=== PATIENT | female | born 1995 | race Two or more races ===

== ENCOUNTER 2016-11-21 16:32 | Emergency (ER) | payer SELFPAY ==
[~2016-11-21] VITALS: Ht 160 cm; Wt 61.2 kg
[2016-11-21 17:36] LABS: BASO % 1 % (0-3); EOS % 1 % (0-3); HEMATOCRIT 36.1 % (36.0-47.0); LYMPH # 2.8 x10^3/uL (1.0-4.8); LYMPH % 33 % (24-48); MEAN CORPUSCULAR HEMOGLOBIN 29 pg (25-35); MEAN CORPUSCULAR HGB CONC 33 g/dL (31-37); MEAN CORPUSCULAR VOLUME 88 fL (79-100); MONO % 7 % (0-9); NEUT % 59 % (31-73); PLATELET COUNT 263 x10^3/uL (140-400); RED BLOOD COUNT 4.12 x10^6/uL (3.50-5.40); RED CELL DISTRIBUTION WIDTH 13.8 % (11.5-14.5); WHITE BLOOD COUNT 8.3 x10^3/uL (4.0-11.0)
[2016-11-21 17:37] LABS: BILIRUBIN,URINE NEGATIVE (NEG); GLUCOSE,URINE NEGATIVE (NEG); NITRITE,URINE NEGATIVE (NEG); PROTEIN,URINE NEGATIVE (NEG-TRACE)
[2016-11-21 17:46] LABS: CALCIUM 8.7 mg/dL (8.5-10.1); CREATININE 0.6 mg/dL (0.6-1.0); GFR 126.2; POTASSIUM 3.8 mmol/L (3.5-5.1)
[2016-11-21 17:49] LABS: BACTERIA,URINE FEW /HPF (0-FEW); RBC,URINE 0 /HPF (0-2); SQUAMOUS EPITHELIAL CELL,UR MANY /LPF
[2016-11-21 17:53] LABS: ALBUMIN 3.7 g/dL (3.4-5.0); DIRECT BILIRUBIN 0.1 mg/dL (0.0-0.2); TOTAL BILIRUBIN 0.4 mg/dL (0.2-1.0); TOTAL PROTEIN 7.8 g/dL (6.4-8.2)
--- NOTE | 2016-11-21 18:12 | RAD ---
PROCEDURE Obstetrics sonogram. HISTORY Pain. TECHNIQUE Trans abdominal sonographic imaging of the pelvis was performed. COMPARISON None. FINDINGS The uterus measures 7.9 x 6.1 x 4.7 cm. The uterus is anteverted. The endometrium measures 8.7 mm in thickness. The right ovary measures 3.6 x 1.9 x 1.9 cm. The left ovary measures 3.3 x 2.2 x 2.5 cm. There is normal blood flow within both ovaries. There is no pelvic free fluid. IMPRESSION 1. Relatively unremarkable pelvic sonogram. No intrauterine gestation is identified. Correlate with a beta HCG level to exclude a possible ectopic gestation. 2. Note is made that the patient refused transvaginal sonographic imaging for better characterization. Electronically signed by: Sveta Campbell (Nov 21, 2016 18:10:50)
[2016-11-21] MEDS ORDERED: PREN1TAB58 PO (18:27)
--- NOTE | 2016-11-21 18:27 | PHYS DOC ---
Past Medical History Past Medical History: No Pertinent History Past Surgical History: No Surgical History Alcohol Use: None Drug Use: None Adult General Chief Complaint Chief Complaint: ABDOMINAL PAIN HPI HPI 21-year-old female presenting with suprapubic abdominal pain for 3 weeks. It is sharp pain that comes and goes. She denies nausea vomiting. She denies vaginal bleeding or changes in vaginal discharge. She denies recent exposure to STDs. The pain is nonradiating and without alleviating factors. Review of systems is negative for chest pain shortness of breath fevers or chills. All other review of systems is negative unless otherwise noted in history of present illness. Review of Systems Review of Systems SEE ABOVE. Allergies Allergies Allergies Coded Allergies Type Severity Reaction Last Updated Verified No Known Drug Allergies 11/21/16 No Physical Exam Physical Exam Constitutional: Well developed, well nourished, no acute distress, non-toxic appearance. HENT: Normocephalic, atraumatic, bilateral external ears normal, oropharynx moist, no oral exudates, nose normal. Eyes: PERRLA, EOMI, conjunctiva normal, no discharge. [] Neck: Normal range of motion, no tenderness, supple, no stridor. Cardiovascular:Heart rate regular rhythm, no murmur [] Lungs & Thorax: Bilateral breath sounds clear to auscultation [] Abdomen: Soft nontender abdomen without rebound tenderness or guarding present. Negative McBurneys point. Negative Merrill sign. No ecchymosis present. Skin: Warm, dry, no erythema, no rash. [] Back: No tenderness, no CVA tenderness. Extremities: No tenderness, no cyanosis, no clubbing, ROM intact, no edema. [] Neurologic: Alert and oriented X 3, normal motor function, normal sensory function, no focal deficits noted. Psychologic: Affect normal, judgement normal, mood normal. [] Current Patient Data Vital Signs Vital Signs Date Time Temp Pulse Resp B/P Pulse Ox O2 Delivery O2 Flow Rate FiO2 11/21/16 18:33 72 16 95/55 98 Room Air 11/21/16 16:51 99.0 99.0 Lab Values Laboratory Tests Test 11/21/16 16:11 11/21/16 17:00 11/21/16 17:29 POC Urine HCG, Qualitative Hcg positive (Negative) Urine Collection Type Unknown Urine Color Yellow Urine Clarity Clear Urine pH 6.0 Urine Specific [place] 1.025 Urine Protein Negativemg/dL (NEG-TRACE) Urine Glucose (UA) Negativemg/dL (NEG) Urine Ketones (Stick) Negativemg/dL (NEG) Urine Blood Negative (NEG) Urine Nitrite Negative (NEG) Urine Bilirubin Negative (NEG) Urine Urobilinogen Dipstick 1.0mg/dL (0.2 mg/dL) Urine Leukocyte Esterase Small (NEG) Urine RBC 0/HPF (0-2) Urine WBC 1-4/HPF (0-4) Urine Squamous Epithelial Cells Many/LPF Urine Bacteria Few/HPF (0-FEW) Urine Mucus Marked/LPF White Blood Count 8.3x10^3/uL (4.0-11.0) Red Blood Count 4.12x10^6/uL (3.50-5.40) Hemoglobin 12.0g/dL (12.0-15.5) Hematocrit 36.1% (36.0-47.0) Mean Corpuscular Volume 88fL (79-100) Mean Corpuscular Hemoglobin 29pg (25-35) Mean Corpuscular Hemoglobin Concent 33g/dL (31-37) Red Cell Distribution Width 13.8% (11.5-14.5) Platelet Count 263x10^3/uL (140-400) Neutrophils (%) (Auto) 59% (31-73) Lymphocytes (%) (Auto) 33% (24-48) Monocytes (%) (Auto) 7% (0-9) Eosinophils (%) (Auto) 1% (0-3) Basophils (%) (Auto) 1% (0-3) Neutrophils # (Auto) 4.9x10^3uL (1.8-7.7) Lymphocytes # (Auto) 2.8x10^3/uL (1.0-4.8) Monocytes # (Auto) 0.6x10^3/uL (0.0-1.1) Eosinophils # (Auto) 0.1x10^3/uL (0.0-0.7) Basophils # (Auto) 0.0x10^3/uL (0.0-0.2) Maternal Serum HCG Beta Subunit 369mIU/mL (0-6) H Sodium Level 139mmol/L (136-145) Potassium Level 3.8mmol/L (3.5-5.1) Chloride Level 104mmol/L (98-107) Carbon Dioxide Level 23mmol/L (21-32) Anion Gap 12 (6-14) Blood Urea Nitrogen 13mg/dL (7-20) Creatinine 0.6mg/dL (0.6-1.0) Estimated GFR (Cockcroft-Gault) 126.2 Glucose Level 93mg/dL (70-99) Calcium Level 8.7mg/dL (8.5-10.1) Total Bilirubin 0.4mg/dL (0.2-1.0) Direct Bilirubin 0.1mg/dL (0.0-0.2) Aspartate Amino Transferase (AST) 17U/L (15-37) Alanine Aminotransferase (ALT) 32U/L (14-59) Alkaline Phosphatase 104U/L (46-116) Total Protein 7.8g/dL (6.4-8.2) Albumin 3.7g/dL (3.4-5.0) Lipase 117U/L (73-393) Laboratory Tests 11/21/16 17:29 Laboratory Tests 11/21/16 17:29 EKG EKG [] Radiology/Procedures Radiology/Procedures [] Course & Med Decision Making Course & Med Decision Making Pertinent Labs and Imaging studies reviewed. (See chart for details) [] 21-year-old female presenting to the emergency department with suprapubic abdominal pain. Vital signs afebrile with a normal heart rate. Pertinent physical exam findings showed a nontender appendix nontender abdomen. Urine test positive. The patient was informed. Ultrasound unable to identify intrauterine however the patient's serum hCG is below the discriminatory zone. She is not having vaginal bleeding. Otherwise her blood work is unremarkable including Rh+ status. I recommended the patient follow up with Dr. Betancourt our mac developer in 2 days for repeat beta hCG testing and further evaluation and care. Dragon Disclaimer Dragon Disclaimer This electronic medical record was generated, in whole or in part, using a voice recognition dictation system. Departure Departure Impression: Primary Impression: Abdominal pain affecting Disposition: HOME, SELF-CARE Condition: STABLE Referrals: NO PCP (PCP) JALIL BETANCOURT MD Patient Instructions: Abdominal Pain During , [id number], - First Trimester, [id number] Additional Instructions: Thank you for allowing us to participate in your care today. Today we were unable to establish that the is in the uterus. If the is outside of the uterus this can be a life-threatening condition so this is why close follow-up is so important. You will need to follow-up with our mac developer in the next 2 days for repeat blood testing and reexamination. Return to the emergency department you have any new or concerning findings. This should be evaluated by the primary care physician and any necessary consulting services for continued management within a few days after discharge. Return to emergency room if you have any new or concerning symptoms including but not limited to fever, chills, nausea, vomiting, intractable pain, any new rashes, chest pain, shortness of air, uncontrolled bleeding, difficulty breathing, and/or vision loss. You may have been prescribed medication that can change in your level of thinking and ability to operate machinery. These medications include hydrocodone and Ativan. Also, Benadryl has been known to do this as well. Be sure to check with your pharmacist and ask if the medications you've prescribed can affect your level of consciousness. I recommend not operating heavy machinery or driving while on medication such as these. Scripts Vits W-Ca,Fe,Fa(<1MG) ( Vitamins)1 Each Tablet1 Tab PO DAILY # 15 TAB Prov:JOSE JHAVEIR MD 11/21/16 JOSE JHAVERI MD Nov 21, 2016 18:27
[2016-11-21 18:33] VITALS: BP 95/55
== END 2016-11-21 18:41 | disposition home or self-care (01) ==
LOC: ER 16:32
DX: O26.891 Other specified pregnancy related conditions, first trimester (principal); R10.30 Lower abdominal pain, unspecified; Z3A.00 Weeks of gestation of pregnancy not specified
CPT/HCPCS: 36415; 76801; 80048; 80076; 81001; 81025; 83690; 84702; 85027; 86850; 86900; 86901; 87086; 99285-25